=== PATIENT | male | born 1995 | race Caucasian/White ===

== ENCOUNTER 2017-02-01 18:56 | Emergency (ER) | payer BC, MEDICAID ==
[~2017-02-01] VITALS: Ht 175.3 cm; Wt 65.9 kg
[2017-02-01] MEDS ORDERED: INSUH10VL SC (19:06)
[2017-02-01] MEDS ORDERED: INSULANT SC (19:06)
[2017-02-01 21:44] VITALS: BP 140/79
== END 2017-02-01 22:01 | disposition home or self-care (01) ==
LOC: M ED 18:56
DX: L25.9 Unspecified contact dermatitis, unspecified cause (principal); E11.9 Type 2 diabetes mellitus without complications; Z79.4 Long term (current) use of insulin; F17.210 Nicotine dependence, cigarettes, uncomplicated

== ENCOUNTER → 2017-04-04 | Outpatient (REF) | payer BC ==
[2017-04-04 17:51] LABS: INFLUENZA A AMPLIFICATION NEGATIVE (NEGATIVE); INFLUENZA B AMPLIFICATION NEGATIVE (NEGATIVE)
== END ==
LOC: M LAB REF 17:10
DX: J11.1 Influenza due to unidentified influenza virus with other respiratory manifestations (principal)

== ENCOUNTER 2018-11-14 22:02 | Emergency (ER) | payer BC, MEDICAID ==
[~2018-11-14] VITALS: Ht 175.3 cm; Wt 69.7 kg
[2018-11-14 22:02] VITALS: BP 176/97
[~2018-11-14 22:02] MED LIST: INSUH10VL SC; INSULANT SC
[2018-11-15] MEDS ORDERED: ANBE20GE TOP (00:13)
[2018-11-15] MEDS ORDERED: AUGM875T28 PO (00:13)
[2018-11-15] MEDS: AUGMENTIN 875 MG TAB PO ONE ×2 (00:15→00:23)
== END 2018-11-15 00:34 | disposition home or self-care (01) ==
LOC: M ED 22:02
DX: K04.7 Periapical abscess without sinus (principal); K03.81 Cracked tooth; Z79.4 Long term (current) use of insulin; F17.200 Nicotine dependence, unspecified, uncomplicated

== ENCOUNTER → 2024-03-24 | Outpatient (REF) | payer BC, MEDICAID, OTHER ==
[~2024-03-24] MED LIST changes: +ANBE20GE TOP; +AUGM875T28 PO
[2024-03-24 18:04] LABS: BASO # 0.1 10^3/uL (0.0-0.2); BASO % 0.8 % (0.0-1.0); EOS # 0.7 10^3/uL (0.0-0.5); EOS % 8.1 % (0.0-3.0); HEMOGLOBIN 13.5 g/dl (13.5-17.5); LYMPH # 2.4 10^3/uL (1.5-5.0); MEAN CORPUSCULAR HEMOGLOBIN 30.3 pg (27.0-33.0); MEAN CORPUSCULAR HGB CONC 33.8 g/dl (32.0-36.5); MEAN CORPUSCULAR VOLUME 89.9 fl (80.0-96.0); MONO # 0.6 10^3/uL (0.0-0.8); NEUTROPHILS # 4.5 10^3/uL (1.5-8.5); NEUTROPHILS % 54.7 % (36.0-66.0); PLATELET COUNT, AUTOMATED 189 10^3/uL (150-450); RED BLOOD COUNT 4.45 10^6/uL (4.30-6.10); WHITE BLOOD COUNT 8.3 10^3/uL (4.0-10.0)
[2024-03-24 18:41] LABS: LIPASE 17 U/L (12-53)
[2024-03-24 18:42] LABS: IRON (FE) 65 UG/DL (65-175); PERCENT SATURATION 21.2 % (19.7-50.0); TOTAL IRON BINDING CAPACITY 306 UG/DL (250-425)
[2024-03-24 18:44] LABS: ALBUMIN 3.6 G/DL (3.2-5.2); ALKALINE PHOSPHATASE 75 U/L (40-129); ALT/SGPT 23 U/L (7.0-40); AST/SGOT 13 U/L (<34); BILIRUBIN,TOTAL 0.4 MG/DL (0.3-1.2); BLOOD UREA NITROGEN 20 MG/DL (9-23); CALCIUM LEVEL 10.3 MG/DL (8.5-10.1); CARBON DIOXIDE LEVEL 31 MMOL/L (20-31); CHLORIDE LEVEL 100 MMOL/L (98-107); CREATININE FOR GFR 0.72 MG/DL (0.70-1.30); FERRITIN 134.4 NG/ML (10.5-307.3); GLOMERULAR FILTRATION RATE > 60.0 (>60); GLUCOSE, FASTING 192 MG/DL (60-100); POTASSIUM SERUM 4.6 MMOL/L (3.5-5.1); SODIUM LEVEL 139 MMOL/L (136-145); THYROID STIMULATING HORMONE 0.693 uIU/ML (0.55-4.78); TOTAL 25(OH) VITAMIN D 25.3 NG/ML (20.0-100.0); TOTAL PROTEIN 7.1 G/DL (5.7-8.2)
[2024-03-24 19:26] LABS: HIV 1&2 SCREEN NEGATIVE (NEGATIVE)
[2024-03-24 19:36] LABS: HEPATITIS C VIRUS ABY INDEX < 0.02 INDEX (<0.8)
== END ==
LOC: M LAB REF 16:25
PROVIDERS: ATTEND Physician Assistant
DX: Z11.9 Encounter for screening for infectious and parasitic diseases, unspecified (principal); E55.9 Vitamin D deficiency, unspecified; R42 Dizziness and giddiness; R10.9 Unspecified abdominal pain; D64.9 Anemia, unspecified

== ENCOUNTER → 2024-04-01 | Outpatient (CLI) | payer OTHER | LOC: M RAD 11:22 | PROVIDERS: ATTEND Physician Assistant | DX: R42 Dizziness and giddiness (principal) ==

== ENCOUNTER → 2024-04-05 | Outpatient (CLI) | payer OTHER | LOC: M EKG 10:05 | PROVIDERS: ATTEND Physician Assistant | DX: R42 Dizziness and giddiness (principal) ==

== ENCOUNTER 2024-05-24 11:43 | Day surgery (SDC) | payer OTHER ==
[~2024-05-24] VITALS: Ht 175.3 cm; Wt 71.2 kg
[~2024-05-24 11:43] MED LIST changes: +CETI-24 PO; +FLUTISP; +LIDOCAINE 2% 100MG/5ML SDV (FOR ANES.) As Ordered ONE; +LISI10TA22 PO; +METO1TAB87 PO; +MIDAZOLAM INJ 2MG/2ML VIAL As Ordered ONE; +MULT-90 PO; +ROCURONIUM BROMIDE 50MG/5ML VIAL As Ordered ONE; +fentaNYL 100 MCG/2 ML INJECTION As Ordered ONE; +propofoL 200 MG/20 ML VIAL As Ordered ONE
[2024-05-24] MEDS: LR 1,000 ML IV SCH (12:55)
[2024-05-24] MEDS: AMPICILLIN SOD/SULBACTAM SOD 3 GM in D5W MINI-BAG 100 ML IV ONE (16:03)
[2024-05-24] MEDS ORDERED: ACETAMINOPHEN 1000MG/100ML IV BAG As Ordered ONE (16:18)
[2024-05-24] MEDS: LIDOCAINE 2% W/ EPINEPHRINE 1.7 ML DENTAL INJ As Ordered ONE (16:27)
[2024-05-24] MEDS ORDERED: ONDANSETRON 4MG 2ML VIAL As Ordered ONE (16:30)
[2024-05-24] MEDS ORDERED: KETOROLAC 30 MG/ML 1ML VIAL As Ordered ONE (16:30)
[2024-05-24] MEDS ORDERED: SUGAMMADEX SODIUM 500 MG/5 ML VIAL (BRIDION) As Ordered ONE (16:30)
[2024-05-24] MEDS: CHLORHEXIDINE GLUCONATE 0.12 % 15ML UDC (PERIDEX ORAL RINSE) As Ordered ONE (16:36)
[2024-05-24] MEDS ORDERED: ePHEDrine SULFATE 25 MG/5 ML(5MG/ML) SYRINGE As Ordered ONE (16:48)
[2024-05-24] MEDS ORDERED: PHENYLephrine 500MCG 5ML (100MCG/ML) SYRINGE As Ordered ONE (16:48)
[2024-05-24] MEDS ORDERED: METOCLOPRAMIDE INJ 10MG/2ML VIAL As Ordered ONE (16:49)
[2024-05-24] MEDS ORDERED: VASOPRESSIN INJ 20UNITS/ML 1ML VIAL As Ordered ONE (16:55)
[2024-05-24] MEDS: BUPivacaine LIPOSOME/PF 266MG 20ML VIAL (13.3MG/ML)(EXPAREL) As Ordered ONE (17:06)
[2024-05-24] MEDS ORDERED: fentaNYL 100 MCG/2 ML INJECTION IV PRN (17:10)
[2024-05-24] MEDS ORDERED: HYDROMORPHONE HCL 0.5 MG/ 0.5 ML SYRINGE IV PRN (17:10)
[2024-05-24] MEDS ORDERED: LR 1,000 ML IV SCH (17:10)
[2024-05-24] MEDS: ONDANSETRON 4MG 2ML VIAL IV PRN (17:56)
[2024-05-24] MEDS: oxyCODONE 5MG TAB PO PRN (17:56)
[2024-05-24 19:20] VITALS: BP 133/75; TEMP 95.7; O2SAT 98
[2024-05-25] MEDS ORDERED: OXYMETAZOLINE 0.05% NASAL SPRAY As Ordered ONE (14:35)
== END 2024-05-24 19:23 | disposition home or self-care (01) ==
LOC: M SDC 11:43
PROVIDERS: ATTEND Dentist
DX: K02.9 Dental caries, unspecified (principal); I10 Essential (primary) hypertension; E10.9 Type 1 diabetes mellitus without complications; Z79.4 Long term (current) use of insulin; Z79.899 Other long term (current) drug therapy; F17.200 Nicotine dependence, unspecified, uncomplicated
CPT/HCPCS: 88300; D7140; D7210; D9223; J0131; J0295; J0666; J1100; J1885; J2250; J2371; J2405; J2598; J2765; J3010